=== PATIENT | male | born 1950 | race Two or more races ===

== ENCOUNTER 2016-12-06 08:06 | Day surgery (SDC) | payer BC ==
[2016-12-06] VITALS (7 sets, daily range): BP systolic 131–151; BP diastolic 76–93
[~2016-12-06] VITALS: Ht 162.6 cm; Wt 73.0 kg
--- NOTE | 2016-12-06 07:45 | Anethesia Preoperative Eval ---
Anesthesia Pre-op PMH/ROS General Date of Evaluation: Dec 06, 2016 Time of Evaluation: 07:39 Anesthesiologist: cydney ASA Score: ASA 3 Mallampati Score Class I : Soft palate, uvula, fauces, pillars visible Class II: Soft palate, uvula, fauces visible Class III: Soft palate, base of uvula visible Class IV: Only hard plate visible Mallampati Classification: Class II Surgeon: inocente Diagnosis: colon cancer Surgical Procedure: colonoscopy Anesthesia History: none Social History: smoking - former Family History: no anesthesia problems Allergies: Coded Allergies: No Known Allergies (Unverified , 05/10/14) Medications: see eMAR Past Medical History Gastrointestinal/Genitourinary: Reports: GERD, other - colon cancer, kidney stones Endocrine: Reports: hypothyroidism Musculoskeletal/Integumentary: Reports: OA, other - osteoporosis Anesthesia Pre-op Phys. Exam Physician Exam Last Vital Signs Date Time Temp Pulse Resp B/P (MAP) Pulse Ox O2 Delivery O2 Flow Rate FiO2 12/06/16 08:38 97.9 53 18 131/90 96 Room Air Constitutional: NAD Neurologic: CN 2-12 intact Cardiovascular: RRR Respiratory: CTA Gastrointestinal: S/NT/ND Airway Exam Mallampati Score: Class II MO: full Neck: supple TMD: 2fb ROM: full Teeth: intact Anesthesia Pre-op A/P Studies Pre-op Studies: EKG - sinus bradycardia Risk Assessment & Plan Assessment: asa3 Plan: mac Status Change Before Surgery: No Pre-Antibiotics Drug: MIKHAIL Mckay Dec 06, 2016 07:45
[~2016-12-06 08:06] MED LIST: FLOMAX0.4 MG ORAL
[2016-12-06] MEDS ORDERED: DEXILANT60 MG ORAL (08:40)
[2016-12-06] MEDS ORDERED: SYNTHROID150 MCG ORAL (08:41)
[2016-12-06] MEDS ORDERED: DiphenhydrAMINE 50mg/ml Inj IVP PRN (09:15)
[2016-12-06] MEDS ORDERED: Atropine Inj 1mg/10ml Syr IV PRN (09:15)
[2016-12-06] MEDS ORDERED: Midazolam 2mg/2ml Inj IVP PRN (09:15)
[2016-12-06] MEDS ORDERED: Hydromorphone 0.5mg/0.5ml inj IVP PRN (09:15)
--- NOTE | 2016-12-06 10:34 | Pre-Procedure Note/Attestation ---
Pre-Procedure Note/Attestation Complete Prior to Procedure Planned Procedure: not applicable Procedure Narrative: colonoscopy Indications for Procedure Pre-Operative Diagnosis: fu colon cancer Attestation I attest that I discussed the nature of the procedure; its benefits; risks and complications; and alternatives (and the risks and benefits of such alternatives ), prior to the procedure, with the patient (or the patient's legal sales representative leather goods). I attest that, if there was a reasonable possibility of needing a blood transfusion, the patient (or the patient's legal sales representative leather goods) was given the [facility] standardized written summary, pursuant to the Moi Ellie Blood Safety Act ([place] Health and Safety Code # 1645, as amended). I attest that I re-evaluated the patient just prior to the surgery and that there has been no change in the patient's H&P, except as documented below: AQUILES COLE Dec 06, 2016 10:34
--- NOTE | 2016-12-06 10:34 | Short Stay Surgery H&P ---
History of Present Illness History of Present Illness Chief Complaint fu colonoscopy for colon cancer HPI Tejinder Reddy is a 66 year old male who was admitted on for Colon Cancer Patient History Allergies: Coded Allergies: No Known Allergies (Unverified , 05/10/14) PAST MEDICAL HISTORY: (1) Arthritis (2) PUD (peptic ulcer disease) (3) BPH (benign prostatic hyperplasia) Past Surgeries: Social History: Medication History Scheduled Dexlansoprazole (Dexilant), 60 MG ORAL DAILY, (Reported) Levothyroxine Sodium* (Synthroid*), 150 MCG ORAL DAILY, (Reported) Tamsulosin HCl (Flomax), 0.4 MG ORAL DAILY, (Reported) Review of Systems Cardiovascular: Reports: no symptoms Respiratory: Reports: no symptoms Skeletal: Reports: no symptoms Gastrointestinal: Reports: no symptoms Genitourinary: Reports: no symptoms Neurologic: Reports: no symptoms Endocrine: Reports: no symptoms Physical Exam Vital Signs Last Vital Signs Date Time Temp Pulse Resp B/P (MAP) Pulse Ox O2 Delivery O2 Flow Rate FiO2 12/06/16 08:38 97.9 53 18 131/90 96 Room Air Skin: normal HENT: normal Heart: normal Lungs: normal Abdomen: normal Extremities: normal Plan Plan of Care colonoscopy Final Diagnosis: Attestation Are the patient's medical conditions optimized for surgery? Attestation Response: yes AQUILES COLE Dec 06, 2016 10:34
[2016-12-06] MEDS ORDERED: Lidocaine 1% MPF 10mg/ml 5ml ONE (10:45)
[2016-12-06] MEDS ORDERED: Propofol 200mg/20ml IV ONE (10:45)
--- NOTE | 2016-12-06 11:12 | Endoscopy Procedure Note ---
Endoscopy Procedure Note Indication for Procedure: colon cancer fu Procedures Performed: colonoscopy Operative Findings/Diagnosis: multiple polyps Specimen: yes Pt Tolerated Procedure Well: Yes Estimated Blood Loss: none Anesthesiologist: jose Anesthesia: MAC Implant(s) used?: No 50 yrs or older w/o bx or poly: No 10yrs. F/U not recommended: Yes If not recommended, why?: Above average risk 10 yrs. F/U needed: Yes 18 years or older w/prev. colo: Yes <3yrs. since last colonoscopy: Yes Med reason:<3 yrs.: colon cancer AQUILES COLE Dec 06, 2016 11:12
--- NOTE | 2016-12-06 11:32 | Immediate Post-Op Evaluation ---
Immediate Post-Op Evalulation Immediate Post-Op Evalulation Procedure: colonoscopy Date of Evaluation: Dec 06, 2016 Time of Evaluation: 10:26 IV Fluids: 550ml 0.9ns Blood Products: none Estimated Blood Loss: negligible Blood Pressure Systolic: 139 Blood Pressure Diastolic: 77 Pulse Rate: 54 Respiratory Rate: 18 O2 Sat by Pulse Oximetry: 100 Temperature (Fahrenheit): 98.1 Pain Score (1-10): 0 Nausea: No Vomiting: No Complications none Patient Status: awake, reacts, patent Hydration Status: adequate Drug: MIKHAIL Landry Dec 06, 2016 11:32
--- NOTE | 2016-12-06 11:34 | 48 Hour Post Anesthesia Eval ---
Post Anesthesia Evaluation Procedure: colonoscopy Date of Evaluation: Dec 06, 2016 Time of Evaluation: 11:33 Blood Pressure Systolic: 140 0: 77 Pulse Rate: 60 Respiratory Rate: 18 Temperature (Fahrenheit): 98.1 O2 Sat by Pulse Oximetry: 100 Airway: patent Nausea: No Vomiting: No Pain Intensity: 0 Hydration Status: adequate Cardiopulmonary Status: stable Mental Status/LOC: patient returned to baseline Post-Anesthesia Complications: none Follow-up care needed: N/A MIKHAIL ORTEGA Dec 06, 2016 11:34
--- NOTE | 2016-12-07 08:15 | Procedure Note ---
DATE OF PROCEDURE: 12/06/2016 SURGEON: Everett Juarez M.D. PROCEDURE: Colonoscopy with snare polypectomy and biopsy. ANESTHESIOLOGIST: Alexa Galeano M.D. INSTRUMENT: Olympus adult flexible colonoscope. INDICATION: History of colon cancer, status post followup. Reason for Procedure: The procedure, risks, benefits, and possible consequences, including hemorrhage, aspiration, perforation and infection, and alternative treatments, were explained to the patient/legal guardian by Dr. Everett Juarez and the patient/legal guardian understood and accepted these risks. Description Of Procedure: After informed consent, and the patient was adequately sedated, first rectal exam was performed which was positive for external and internal hemorrhoid. Then, the scope was advanced from the rectum to the anastomosis. Quality of prep was very good. At the area of the anastomosis, there were two polyps, one roughly measured about 5 mm, removed with cold snare polypectomy and other one was removed with the biopsy forceps technique. Then in the transverse colon, there was one diminutive polyp that one was also was removed with the cold biopsy forceps technique. In the rectum, there were multiple hyperplastic-looking polyps few of them were biopsied. The patient had evidence of scattered diverticulosis in the left colon. The patient had evidence of internal hemorrhoids on . The patient tolerated the procedure very well without any complication. SUMMARY FINDINGS: 1. Multiple colonic polyps. See above for details. 2. Diverticulosis. 3. Internal and external hemorrhoids. RECOMMENDATIONS: 1. Follow up biopsies and treat accordingly. Depending on what the pathology shows the patient would need a colonoscopy within one year or three years. 2. Treat hemorrhoids if symptomatic. Everett Juarez M.D. DR: SONNY JOB#: [id number] CC:
--- NOTE | 2016-12-13 19:18 | Cardiology Report ---
APPROVED REPORT EKG Measurement Heart [id number] Sinus bradycardia Otherwise normal ECG
== END 2016-12-06 12:25 | disposition home or self-care (01) ==
LOC: GAS 08:06
DX: Z08 Encounter for follow-up examination after completed treatment for malignant neoplasm (principal); K63.5 Polyp of colon; K57.30 Diverticulosis of large intestine without perforation or abscess without bleeding; Z85.038 Personal history of other malignant neoplasm of large intestine; K27.9 Peptic ulcer, site unspecified, unspecified as acute or chronic, without hemorrhage or perforation; K64.8 Other hemorrhoids; N40.0 Benign prostatic hyperplasia without lower urinary tract symptoms; K21.9 Gastro-esophageal reflux disease without esophagitis; Z87.442 Personal history of urinary calculi; M81.0 Age-related osteoporosis without current pathological fracture; M19.90 Unspecified osteoarthritis, unspecified site; R00.1 Bradycardia, unspecified; K64.4 Residual hemorrhoidal skin tags
CPT/HCPCS: 45380; 45385; 93005; J2704; 94003; 94150

== ENCOUNTER 2020-03-25 10:01 | Outpatient (CLI) | payer MEDICARE ==
[~2020-03-25 10:01] MED LIST changes: +DEXILANT60 MG ORAL; +SYNTHROID150 MCG ORAL
--- NOTE | 2020-03-25 16:14 | Consultation ---
DATE OF CONSULTATION: 03/25/2020 GASTROENTEROLOGY CONSULTATION CONSULTING PHYSICIAN: Everett Juarez MD. CHIEF COMPLAINT: Colon cancer. HISTORY OF PRESENT ILLNESS: This is a very pleasant 69-year-old male, known to me from few years ago when I did his colonoscopy for the colon cancer. The patient had surgery and chemotherapy, has not had followup colonoscopy yet, so the patient is referred to us for repeat colonoscopy. PAST MEDICAL HISTORY: 1. Prostate cancer. 2. Thyroid cancer. 3. Colon cancer. ALLERGIES: No known allergies. MEDICATIONS: Please see medication reconciliation list. SOCIAL HISTORY: The patient denies any tobacco, alcohol, or drug abuse. FAMILY HISTORY: Noncontributory. REVIEW OF SYSTEMS: A 10-point review of systems performed and pertinent positives in HPI. PHYSICAL EXAMINATION: VITAL SIGNS: Temperature 97.2, blood pressure 151/74, pulse 71, respirations 20. HEENT: Normocephalic and atraumatic. Sclerae are anicteric. NECK: Supple. No evidence of obvious lymphadenopathy. CARDIOVASCULAR: Regular rate and rhythm. Plus S1-S2. LUNGS: Clear to auscultation bilaterally. ABDOMEN: Positive bowel sounds. Soft and nontender. There is a scar from prior abdominal surgeries. No rebound. No guarding. No peritoneal sign. ASSESSMENT AND PLAN: Pleasant 69-year-old male with multiple cancers including thyroid, prostate and colon, need a repeat colonoscopy. The patient was given instruction for colonoscopy. Risks and benefits of the procedure was explained to him. We will schedule him hopefully for next week. Everett Juarez M.D. DR: LUCÍA JOB#: [id number] CC:
== END 2020-03-25 12:01 | disposition home or self-care (01) ==
LOC: PAN 10:01
DX: C18.9 Malignant neoplasm of colon, unspecified (principal); Z85.46 Personal history of malignant neoplasm of prostate; Z85.850 Personal history of malignant neoplasm of thyroid
CPT/HCPCS: 99212

== ENCOUNTER 2020-04-07 07:51 | Day surgery (SDC) | payer MEDICARE, OTHER ==
[~2020-04-07] VITALS: Ht 162.6 cm; Wt 73.0 kg
[2020-04-07] VITALS (10 sets, daily range): BP systolic 116–148; BP diastolic 76–89
[~2020-04-07 07:51] MED LIST changes: +LR 1000ml 1,000 ML IVLG SCH
[2020-04-07] MEDS ORDERED: blood pressure pill PO (08:18)
--- NOTE | 2020-04-07 09:23 | Pre-Procedure Note/Attestation ---
Pre-Procedure Note/Attestation Complete Prior to Procedure Planned Procedure: not applicable Procedure Narrative: esophagogastroduodenoscopy and colonoscopy Indications for Procedure Pre-Operative Diagnosis: colon cancer, gerd Attestation I attest that I discussed the nature of the procedure; its benefits; risks and complications; and alternatives (and the risks and benefits of such alter natives), prior to the procedure, with the patient (or the patient's legal admissions representative). I attest that, if there was a reasonable possibility of needing a blood transfusion, the patient (or the patient's legal admissions representative) was given the [facility] standardized written summary, pursuant to the Moi Ellie Blood Safety Act ([place] Health and Safety Code # 1645, as amended). I attest that I re-evaluated the patient just prior to the surgery and that there has been no change in the patient's H&P, except as documented below: Everett Juarez MD Apr 07, 2020 09:23
--- NOTE | 2020-04-07 09:23 | Short Stay Surgery H&P ---
History of Present Illness History of Present Illness Chief Complaint see office consult note HPI Tejinder Reddy is a 69 year old male who was admitted on for Abdominal Pain Patient History Allergies: Coded Allergies: No Known Allergies (Unverified , 05/10/14) Medication History Scheduled Dexlansoprazole (Dexilant), 60 MG ORAL DAILY, (Reported) Levothyroxine Sodium* (Synthroid*), 150 MCG ORAL DAILY, (Reported) Tamsulosin HCl (Flomax), 0.4 MG ORAL DAILY, (Reported) [blood pressure pill], 1 TAB PO DAILY, (Reported) Physical Exam Vital Signs Last Vital Signs Date Time Temp Pulse Resp B/P (MAP) Pulse Ox O2 Delivery O2 Flow Rate FiO2 04/07/20 08:46 Room Air 04/07/20 08:19 97.4 59 18 134/80 98 Plan Attestation Are the patient's medical conditions optimized for surgery? Everett Juarez MD Apr 07, 2020 09:23
--- NOTE | 2020-04-07 09:23 | Anethesia Preoperative Eval ---
Anesthesia Pre-op PMH/ROS General Date of Evaluation: Apr 07, 2020 Time of Evaluation: 09:17 Anesthesiologist: La ASA Score: ASA 2 Mallampati Score Class I : Soft palate, uvula, fauces, pillars visible Class II: Soft palate, uvula, fauces visible Class III: Soft palate, base of uvula visible Class IV: Only hard plate visible Mallampati Classification: Class II Surgeon: Ann Diagnosis: Colon CA Surgical Procedure: EGD Colonoscopy Anesthesia History: none Family History: no anesthesia problems Allergies: Coded Allergies: No Known Allergies (Unverified , 05/10/14) Medications: see eMAR Patient NPO?: Yes Past Medical History Cardiovascular: Reports: HTN; Denies: CAD, [place], valve dz, arrhythmia, other Pulmonary: Denies: asthma, COPD, DANNI, other Gastrointestinal/Genitourinary: Reports: GERD, other - COlon ; Denies: CRI, ESRD Neurologic/Psychiatric: Denies: dementia, CVA, depression/anxiety, TIA, other Endocrine: Reports: hypothyroidism; Denies: DM, steroids, other HEENT: Denies: cataract (L), cataract (R), glaucoma, [place] (L), [place] (R), other Hematology/Immune: Denies: anemia, DVT, bleeding disorder, other Musculoskeletal/Integumentary: Denies: OA, RA, DJD, DDD, edema, other PMH Narrative: as above PSxH Narrative: R hemicolectomy Anesthesia Pre-op Phys. Exam Physician Exam Last Vital Signs Date Time Temp Pulse Resp B/P (MAP) Pulse Ox O2 Delivery O2 Flow Rate FiO2 04/07/20 08:46 Room Air 04/07/20 08:19 97.4 59 18 134/80 98 Constitutional: NAD Neurologic: CN 2-12 intact Cardiovascular: RRR, no M/R/G Respiratory: CTA Gastrointestinal: S/NT/ND Airway Exam Mallampati Score: Class II MO: full ROM: limited Teeth: intact Dentures: no upper, no lower Anesthesia Pre-op A/P Risk Assessment & Plan Assessment: ASA 2 Plan: MAC Status Change Before Surgery: No Faustino Tovar MD Apr 07, 2020 09:23
[2020-04-07] MEDS ORDERED: Midazolam 2mg/2ml Inj ONE (09:32)
[2020-04-07] MEDS ORDERED: fentaNYL 100 mcg/2 mL IV ONE (09:33)
[2020-04-07] MEDS ORDERED: LR 1000ml ONE (10:00)
--- NOTE | 2020-04-07 10:16 | Immediate Post-Op Evaluation ---
Immediate Post-Op Evalulation Immediate Post-Op Evalulation Procedure: Egd Colonoscopy Date of Evaluation: Apr 07, 2020 Time of Evaluation: 10:15 IV Fluids: 600 Blood Products: none Estimated Blood Loss: none Urinary Output: none Blood Pressure Systolic: 135 Blood Pressure Diastolic: 74 Pulse Rate: 62 Respiratory Rate: 19 O2 Sat by Pulse Oximetry: 99 Temperature (Fahrenheit): 97.6 Pain Score (1-10): 1 Nausea: No Vomiting: No Complications none Patient Status: awake, patent, none Hydration Status: adequate Faustino Tovar MD Apr 07, 2020 10:15
--- NOTE | 2020-04-07 13:58 | 48 Hour Post Anesthesia Eval ---
Post Anesthesia Evaluation Procedure: Egd Colonoscopy Date of Evaluation: Apr 07, 2020 Time of Evaluation: 13:57 Blood Pressure Systolic: 116 0: 78 Pulse Rate: 64 Respiratory Rate: 20 Temperature (Fahrenheit): 97.6 O2 Sat by Pulse Oximetry: 98 Airway: patent Nausea: No Vomiting: No Pain Intensity: 1 Hydration Status: adequate Cardiopulmonary Status: stable Mental Status/LOC: patient returned to baseline Follow-up Care/Observations: n/a Post-Anesthesia Complications: none Follow-up care needed: ready to discharge Faustino Tovar MD Apr 07, 2020 13:58
--- NOTE | 2020-04-13 16:29 | Procedure Note ---
DATE OF PROCEDURE: 04/07/2020 SURGEON: Everett Juarez MD. PROCEDURE: Upper endoscopy with biopsy, colonoscopy with biopsy and snare polypectomy. ANESTHESIA: Per Dr. Tovar. INSTRUMENT: Olympus adult flexible upper endoscope and colonoscope. INDICATIONS: 1. History of colon cancer, status post right hemicolectomy. 2. Chronic GERD. REASON FOR PROCEDURE: The procedure, risks, benefits, and possible consequences, including hemorrhage, aspiration, perforation and infection, and alternative treatments, were explained to the patient/legal guardian by Dr. Everett Juarez and the patient/legal guardian understood and accepted these risks. PROCEDURE IN DETAIL: After informed consent was obtained and the patient was adequately sedated, Olympus upper endoscope was advanced from mouth into the second portion of the duodenum and retroflexion was performed in the stomach. The patient has diffuse gastritis. Random biopsy from antrum was obtained to rule out H. pylori infection. The rest of upper endoscopic examination grossly within normal limits. No evidence of any esophagitis or esophageal varices. At this time, the upper endoscope was retrieved and the patient was turned over for colonoscopy. First, rectal exam was performed, which was positive for internal hemorrhoids. Then, the scope was advanced from the rectum into the anastomosis. Quality of prep was good except for the area of the anastomosis very close to it that was covered with greenish stool. We washed and cleaned it as best as we could. The patient had one polyp at the anastomosis, removed with cold biopsy forceps technique. This polyp measured roughly about 4 mm. Random biopsy from anastomosis was also obtained. The patient had another polyp in the sigmoid measured roughly about 6 mm, removed with cold snare polypectomy and biopsy forceps technique together. The patient had some scattered diverticula in the left colon. Retroflexion of rectum showed evidence of internal hemorrhoids. SUMMARY OF FINDINGS: 1. Gastritis, status post biopsy. 2. One polyp at the anastomosis, status post biopsy. 3. Another polyp in the sigmoid, status post snare polypectomy and biopsy. 4. Scattered diverticulosis in the left colon. 5. Internal hemorrhoids. RECOMMENDATIONS: 1. Follow biopsy result and treat accordingly. 2. Recommend repeat colonoscopy in three years. Everett Nader Juarez DR: LUCÍA JOB#: [id number] CC:
== END 2020-04-07 11:30 | disposition home or self-care (01) ==
LOC: GAS 07:51
DX: K21.9 Gastro-esophageal reflux disease without esophagitis (principal); K63.5 Polyp of colon; K57.90 Diverticulosis of intestine, part unspecified, without perforation or abscess without bleeding; K64.8 Other hemorrhoids; K29.50 Unspecified chronic gastritis without bleeding; D21.4 Benign neoplasm of connective and other soft tissue of abdomen; I10 Essential (primary) hypertension; E03.9 Hypothyroidism, unspecified; Z85.038 Personal history of other malignant neoplasm of large intestine
CPT/HCPCS: 43239; 45380; 45385; 93005; 94003; J2250; J2704; J3010; J7120; U0004; 94150

== ENCOUNTER 2020-04-15 09:01 | Outpatient (CLI) | payer MEDICARE, OTHER ==
[~2020-04-15 09:01] MED LIST changes: -LR 1000ml 1,000 ML IVLG SCH; +blood pressure pill PO
--- NOTE | 2020-04-16 15:27 | General Progress Note ---
Subjective ROS Limited/Unobtainable: Yes Allergies: Coded Allergies: No Known Allergies (Unverified , 05/10/14) Objective General Appearance: alert EENT: normal ENT inspection Neck: supple Cardiovascular: normal rate Respiratory/Chest: lungs clear Abdomen: normal bowel sounds, non tender, soft Extremities: non-tender Assessment/Plan Assessment/Plan: SUMMARY OF FINDINGS: 1. Gastritis, status post biopsy. 2. One polyp at the anastomosis, status post biopsy. 3. Another polyp in the sigmoid, status post snare polypectomy and biopsy. 4. Scattered diverticulosis in the left colon. 5. Internal hemorrhoids. repeat colonoscopy in 3 years Everett Juarez MD Apr 16, 2020 15:27
== END 2020-04-15 15:16 | disposition home or self-care (01) ==
LOC: PAN 09:01
DX: K29.70 Gastritis, unspecified, without bleeding (principal); K63.5 Polyp of colon; K57.90 Diverticulosis of intestine, part unspecified, without perforation or abscess without bleeding; K64.8 Other hemorrhoids
CPT/HCPCS: 99212